=== PATIENT | female | born 1995 | race Caucasian/White ===

== ENCOUNTER 2019-01-05 19:00 | Emergency (ER) | payer OTHER ==
[~2019-01-05] VITALS: Ht 162.6 cm; Wt 70.9 kg
[~2019-01-05 19:00] MED LIST: HYDR-3237 PO; NAPR-685 PO
[2019-01-05 19:05] VITALS: BP 111/64
[2019-01-05] MEDS ORDERED: KETOROLAC 30 MG/1 ML ONE (19:25)
[2019-01-05] MEDS ORDERED: KETOROLAC 30 MG/1 ML IM ONE (19:30)
== END 2019-01-05 19:48 | disposition home or self-care (01) ==
LOC: ED 19:47
DX: M65.4 Radial styloid tenosynovitis [de Quervain] (principal); M25.531 Pain in right wrist
CPT/HCPCS: 96372; 99283; J1885